=== PATIENT | female | born 2000 | race Hispanic/Latino ===

== ENCOUNTER 2022-06-10 23:05 | Emergency (ER) | payer OTHER, SELFPAY ==
[2022-06-11] MEDS ORDERED: Acetaminophen 500 MG TAB ONE (01:42)
== END 2022-06-11 03:30 | disposition home or self-care (01) ==
LOC: CSHERS 23:05
DX: U07.1 COVID-19 (principal); F17.200 Nicotine dependence, unspecified, uncomplicated
CPT/HCPCS: 96360; 96361; U0003; U0005

== ENCOUNTER 2022-09-26 21:20 | Inpatient (IN) | payer OTHER ==
[2022-09-26 22:09] LABS: #Eosinphils 0.2 10x3/uL (0.0-0.5); #Monocytes 0.6 10x3/uL (0.0-1.1); #Neutrophils 5.7 10x3/uL (1.5-8.4); %Basophils 0.2 % (0.0-2.0); %Eosinophils 2.5 % (0.0-6.0); %Lymphocytes 19.3 % (18.0-47.0); %Monocytes 7.6 % (0.0-10.0); %Neutrophils 69.7 % (40.0-75.0); Hemoglobin 10.7 g/dL (12.0-15.5); Mean Corpuscular HGB CONC 33.1 g/dL (32.0-36.0); Mean Corpuscular Hemoglobin 27.7 pg (27.0-33.0); Mean Corpuscular Volume 83.7 fl (81.6-98.3); Mean Platelet Volume 10.6 fl (7.4-10.4); Platelet Count 269 10x3/uL (150-450); RBC Distribution Width 14.1 % (11.5-14.5); Red Blood Cell (RBC) Count 3.86 10x6/uL (3.90-5.03); White Blood Cell (WBC) Count 8.2 10x3/uL (3.5-10.5)
[2022-09-26 22:23] LABS: ALT (SGPT) 454 U/L (8-55); AST (SGOT) 406 U/L (5-34); Albumin 4.2 g/dL (3.5-5.0); Alkaline Phosphatase 226 U/L (40-110); Anion Gap 13 mmol/L (10-20); BUN (Urea Nitrogen) 8 mg/dL (7.0-18.7); Bilirubin, Total 3.2 mg/dL (0.2-1.2); Calc. Creatinine Clearance 0 mL/min (70-130); Calcium 9.1 mg/dL (7.8-10.44); Carbon Dioxide 25 mmol/L (22-29); Chloride 107 mmol/L (98-107); Estimated GFR 120; Glucose 91 mg/dL (70-105); Lipase 16 U/L (8-78); Potassium 4.1 mmol/L (3.5-5.1); Protein, Total 7.2 g/dL (6.0-8.3); Sodium 141 mmol/L (136-145)
[2022-09-26] MEDS ORDERED: Ketorolac Tromethamine 30 MG/ML VIAL ONE (22:45)
[2022-09-27] MEDS ORDERED: Zolpidem Tartrate 5 MG TAB PO PRN (02:03)
[2022-09-27] MEDS ORDERED: Morphine 4 MG/ML VIAL SLOW IVP PRN (02:06)
[2022-09-27] MEDS ORDERED: Lactated Ringer's 1,000 ML IV SCH (02:15)
[2022-09-27 02:33] LABS: SARS-CoV-2 NAA Rapid Test Not Detected (NotDetected)
[2022-09-27] MEDS ORDERED: Piperacillin/Tazobactam 4.5 GM VIAL ONE (02:38)
[2022-09-27 03:31] LABS: #Eosinphils 0.2 10x3/uL (0.0-0.5); #Monocytes 0.6 10x3/uL (0.0-1.1); #Neutrophils 5.6 10x3/uL (1.5-8.4); %Basophils 0.2 % (0.0-2.0); %Eosinophils 2.5 % (0.0-6.0); %Lymphocytes 19.8 % (18.0-47.0); %Monocytes 7.5 % (0.0-10.0); %Neutrophils 69.5 % (40.0-75.0); Hemoglobin 10.7 g/dL (12.0-15.5); Mean Corpuscular HGB CONC 32.7 g/dL (32.0-36.0); Mean Corpuscular Hemoglobin 27.3 pg (27.0-33.0); Mean Corpuscular Volume 83.4 fl (81.6-98.3); Mean Platelet Volume 10.6 fl (7.4-10.4); Platelet Count 255 10x3/uL (150-450); RBC Distribution Width 14.3 % (11.5-14.5); Red Blood Cell (RBC) Count 3.92 10x6/uL (3.90-5.03); White Blood Cell (WBC) Count 8.1 10x3/uL (3.5-10.5)
[2022-09-27 03:42] LABS: ALT (SGPT) 444 U/L (8-55); AST (SGOT) 386 U/L (5-34); Albumin 4.1 g/dL (3.5-5.0); Alkaline Phosphatase 229 U/L (40-110); Anion Gap 15 mmol/L (10-20); BUN (Urea Nitrogen) 9 mg/dL (7.0-18.7); Calc. Creatinine Clearance 0 mL/min (70-130); Calcium 9.2 mg/dL (7.8-10.44); Carbon Dioxide 23 mmol/L (22-29); Cardiac Risk 3.4 (Less than 4.5); Chloride 107 mmol/L (98-107); Cholesterol 182 mg/dl (< 200 Desired); Estimated GFR 120; Globulin 2.9 g/dL (2.4-3.5); Glucose 94 mg/dL (70-105); HDL Cholesterol 53 mg/dL (>60 Neg Risk); LDL Cholesterol, Calculated 110 mg/dL; Potassium 4.1 mmol/L (3.5-5.1); Sodium 141 mmol/L (136-145); Triglycerides 93 mg/dL (Less than 150)
[2022-09-27] MEDS ORDERED: Morphine 4 MG/ML VIAL ONE (04:04)
[2022-09-27] MEDS: Morphine 4 MG/ML VIAL SLOW IVP PRN ×3 (04:10→13:34)
[2022-09-27] MEDS: Lactated Ringer's 1,000 ML IV SCH ×2 (05:31→19:44)
[2022-09-27] MEDS ORDERED: Enoxaparin Sodium 40 MG/0.4 ML SYRINGE SC SCH (09:00)
[2022-09-27] MEDS: Piperacillin/Tazobactam 3.375 GM in Sodium Chloride 0.9% 100 ML IVPB SCH ×2 (09:17→15:55)
[2022-09-27] MEDS: Famotidine/PF 20 mg/2ml Vial SLOW IVP SCH ×2 (09:17→20:07)
[2022-09-27] MEDS ORDERED: Bupivacaine PF 0.5% 30 ML VIAL ONE ×2 (09:43→10:56)
[2022-09-27] MEDS ORDERED: Midazolam HCl 2 mg/2 ml Vial ONE (10:02)
[2022-09-27] MEDS ORDERED: Fentanyl 100 MCG/2 ML VIAL ONE (10:02)
[2022-09-27] MEDS ORDERED: PROPOFOL 20 ML ONE (10:02)
[2022-09-27] MEDS ORDERED: Rocuronium Bromide 10 MG/ML (10ML VIAL) ONE (10:02)
[2022-09-27] MEDS ORDERED: Lidocaine 2% PF 5 ML VIAL ONE (10:03)
[2022-09-27] MEDS ORDERED: Dexamethasone 4 mg/ml Vial ONE (10:03)
[2022-09-27] MEDS ORDERED: Ondansetron PF 4 MG/2 ML Vial ONE (10:03)
[2022-09-27] MEDS ORDERED: Iopamidol-M 300 61% 15 ML VIAL ONE (10:56)
[2022-09-27] MEDS ORDERED: EPINEPHrine 1 MG/ML AMP ONE (10:56)
[2022-09-27] MEDS ORDERED: ePHEDrine Sulfate 50 MG/10 ML VIAL ONE (11:16)
[2022-09-27] MEDS ORDERED: Albuterol Sulfate HFA (OR ONLY) ONE (11:19)
[2022-09-27] MEDS ORDERED: Glycopyrrolate 0.2 MG/ML 5 ML SYRINGE ONE (11:22)
[2022-09-27] MEDS ORDERED: Meperidine HCl/PF 25 MG/ML VIAL SLOW IVP PRN (13:48)
[2022-09-27] MEDS: HYDROcodone/Acetaminophen 5/325 mg Tablet PO PRN ×3 (15:04→21:59)
[2022-09-27] MEDS: Fentanyl 100 MCG/2 ML VIAL SLOW IVP PRN ×2 (15:54→20:03)
[2022-09-27] MEDS: Ondansetron PF 4 MG/2 ML Vial IVP PRN (17:36)
[2022-09-27 22:16] VITALS: BMI 43.4
[2022-09-28] MEDS: Fentanyl 100 MCG/2 ML VIAL SLOW IVP PRN ×4 (00:05→16:58)
[2022-09-28] MEDS: Piperacillin/Tazobactam 3.375 GM in Sodium Chloride 0.9% 100 ML IVPB SCH ×4 (00:11→23:45)
[2022-09-28] MEDS: HYDROcodone/Acetaminophen 5/325 mg Tablet PO PRN ×4 (02:01→23:44)
[2022-09-28] MEDS: Ondansetron PF 4 MG/2 ML Vial IVP PRN (02:04)
[2022-09-28 03:51] LABS: #Eosinphils 0.1 10x3/uL (0.0-0.5); #Monocytes 0.7 10x3/uL (0.0-1.1); #Neutrophils 9.3 10x3/uL (1.5-8.4); %Basophils 0.2 % (0.0-2.0); %Eosinophils 0.4 % (0.0-6.0); %Lymphocytes 9.8 % (18.0-47.0); %Monocytes 6.4 % (0.0-10.0); %Neutrophils 82.5 % (40.0-75.0); Mean Corpuscular HGB CONC 31.5 g/dL (32.0-36.0); Mean Corpuscular Hemoglobin 26.6 pg (27.0-33.0); Mean Corpuscular Volume 84.5 fl (81.6-98.3); Mean Platelet Volume 10.8 fl (7.4-10.4); Platelet Count 298 10x3/uL (150-450); RBC Distribution Width 14.4 % (11.5-14.5); Red Blood Cell (RBC) Count 4.13 10x6/uL (3.90-5.03); White Blood Cell (WBC) Count 11.3 10x3/uL (3.5-10.5)
[2022-09-28 04:06] LABS: ALT (SGPT) 491 U/L (8-55); AST (SGOT) 299 U/L (5-34); Albumin 4.2 g/dL (3.5-5.0); Alkaline Phosphatase 256 U/L (40-110); Anion Gap 14 mmol/L (10-20); BUN (Urea Nitrogen) 6 mg/dL (7.0-18.7); Bilirubin, Total 5.4 mg/dL (0.2-1.2); Calc. Creatinine Clearance 182 mL/min (70-130); Calcium 9.1 mg/dL (7.8-10.44); Carbon Dioxide 22 mmol/L (22-29); Chloride 106 mmol/L (98-107); Estimated GFR 117; Glucose 97 mg/dL (70-105); Potassium 4.4 mmol/L (3.5-5.1); Protein, Total 7.2 g/dL (6.0-8.3); Sodium 138 mmol/L (136-145)
[2022-09-28] MEDS: Famotidine/PF 20 mg/2ml Vial SLOW IVP SCH ×2 (07:34→21:45)
[2022-09-28] MEDS ORDERED: Fentanyl 100 MCG/2 ML VIAL ONE ×2 (12:06→13:03)
[2022-09-28] MEDS ORDERED: Indomethacin 50 MG SUPP ONE ×2 (12:45→13:40)
[2022-09-28] MEDS ORDERED: Dexamethasone 4 mg/ml Vial ONE (12:46)
[2022-09-28] MEDS ORDERED: Rocuronium Bromide 10 MG/ML (10ML VIAL) ONE (12:46)
[2022-09-28] MEDS ORDERED: Ondansetron PF 4 MG/2 ML Vial ONE (12:46)
[2022-09-28] MEDS ORDERED: Lidocaine 1% PF 5 ML VIAL ONE (12:46)
[2022-09-28] MEDS ORDERED: Iopamidol 10 ML FS ONE (13:33)
[2022-09-28] MEDS ORDERED: Iopamidol 20 ML FS ONE (13:33)
[2022-09-28] MEDS ORDERED: Iopamidol-M 200 41% 20 ML VIAL ONE (13:39)
[2022-09-28] MEDS ORDERED: Glycopyrrolate 0.2 MG/ML 5 ML SYRINGE ONE (13:46)
[2022-09-28] MEDS ORDERED: SUGAMMADEX SODIUM 200 MG/2 ML VIAL ONE (13:58)
[2022-09-29 04:05] LABS: #Monocytes 0.9 10x3/uL (0.0-1.1); #Neutrophils 7.8 10x3/uL (1.5-8.4); %Basophils 0.2 % (0.0-2.0); %Lymphocytes 15.3 % (18.0-47.0); %Monocytes 8.2 % (0.0-10.0); %Neutrophils 75.9 % (40.0-75.0); Hemoglobin 9.9 g/dL (12.0-15.5); Mean Corpuscular HGB CONC 32.1 g/dL (32.0-36.0); Mean Corpuscular Hemoglobin 27.1 pg (27.0-33.0); Mean Corpuscular Volume 84.4 fl (81.6-98.3); Mean Platelet Volume 11.1 fl (7.4-10.4); Platelet Count 244 10x3/uL (150-450); RBC Distribution Width 14.6 % (11.5-14.5); Red Blood Cell (RBC) Count 3.65 10x6/uL (3.90-5.03); White Blood Cell (WBC) Count 10.3 10x3/uL (3.5-10.5)
[2022-09-29 04:22] LABS: ALT (SGPT) 391 U/L (8-55); AST (SGOT) 172 U/L (5-34); Albumin 3.9 g/dL (3.5-5.0); Alkaline Phosphatase 214 U/L (40-110); Anion Gap 13 mmol/L (10-20); BUN (Urea Nitrogen) 8 mg/dL (7.0-18.7); Bilirubin, Total 5.8 mg/dL (0.2-1.2); Calc. Creatinine Clearance 177 mL/min (70-130); Calcium 8.8 mg/dL (7.8-10.44); Carbon Dioxide 23 mmol/L (22-29); Chloride 105 mmol/L (98-107); Estimated GFR 113; Globulin 2.8 g/dL (2.4-3.5); Glucose 92 mg/dL (70-105); Potassium 3.8 mmol/L (3.5-5.1); Protein, Total 6.7 g/dL (6.0-8.3); Sodium 137 mmol/L (136-145)
[2022-09-29] MEDS: HYDROcodone/Acetaminophen 5/325 mg Tablet PO PRN (06:36)
[2022-09-29] MEDS: Famotidine/PF 20 mg/2ml Vial SLOW IVP SCH (08:49)
[2022-09-29] MEDS: Piperacillin/Tazobactam 3.375 GM in Sodium Chloride 0.9% 100 ML IVPB SCH (08:49)
[2022-09-29 11:48] VITALS: BP 146/72; TEMP 98
== END 2022-09-29 13:33 | disposition home or self-care (01) | DRG 769 ==
LOC: CSHERS 21:20 → CSHERHOLD 09-27 02:43 → CSHPED 09-27 08:14
PROVIDERS: ADMIT Student in an Organized Health Care Education/Training Program; ATTEND Family Medicine
PROC: 0FT44ZZ Resection of Gallbladder, Percutaneous Endoscopic Approach (ICD-10-PCS; principal; 2022-09-27)
PROC: BF031ZZ Plain Radiography of Gallbladder and Bile Ducts using Low Osmolar Contrast (ICD-10-PCS; 2022-09-27)
PROC: 0F798ZZ Dilation of Common Bile Duct, Via Natural or Artificial Opening Endoscopic (ICD-10-PCS; 2022-09-28)
DX: O99.63 Diseases of the digestive system complicating the puerperium (principal); K80.01 Calculus of gallbladder with acute cholecystitis with obstruction; Z20.822 Contact with and (suspected) exposure to COVID-19; K76.0 Fatty (change of) liver, not elsewhere classified; F17.210 Nicotine dependence, cigarettes, uncomplicated; O24.430 Gestational diabetes mellitus in the puerperium, diet controlled; O99.335 Smoking (tobacco) complicating the puerperium; Z71.6 Tobacco abuse counseling; Z71.51 Drug abuse counseling and surveillance of drug abuser; O99.325 Drug use complicating the puerperium; F12.10 Cannabis abuse, uncomplicated; D64.9 Anemia, unspecified; O90.81 Anemia of the puerperium; Z83.3 Family history of diabetes mellitus; Z80.9 Family history of malignant neoplasm, unspecified; E66.9 Obesity, unspecified; O99.214 Obesity complicating childbirth; J45.909 Unspecified asthma, uncomplicated; O99.53 Diseases of the respiratory system complicating the puerperium
CPT/HCPCS: 36415; 74018; 74330; 76705; 80053; 80061; 83690; 85025; 88304; 94760; 96374; 96375; C1713; C1725; C1889; J1100; J1885; J2001; J2175; J2250; J2270; J2405; J2543; J2704; J3010; J3490; J7120; S0028; U0002